=== PATIENT | female | born 1960 | race Two or more races ===

== ENCOUNTER 2019-01-19 11:02 | Emergency (ER) | payer MEDICARE ==
--- NOTE | 2019-01-19 11:39 | ER Document Report ---
ED Medical Screen (RME) - General Chief Complaint: Rectal Bleeding Stated Complaint: ANAL BLEEDING, ABDOMINAL PAIN Time Seen by Provider: 01/19/19 11:27 Mode of Arrival: Ambulatory Information source: Patient Notes: This [place]-speaking female presents the emergency department with 4 days of constipation and rectal bleeding. Reports history of cirrhosis. Also reports patient is anemic. Patient is visiting from [place]. Daughter is at her side interpreting. Daughter also reports patient has peripheral edema but that is not new. Also reports patient seems to be forgetting more. She reports the patient's primary provider told her that it is due to her cirrhosis. Nonalcoholic. I have greeted and performed a rapid initial assessment of this patient. A comprehensive ED assessment and evaluation of the patient, analysis of test results and completion of the medical decision making process will be conducted by additional ED providers. Dictation of this chart was performed using voice recognition software; therefore, there may be some unintended grammatical errors. TRAVEL OUTSIDE OF THE [place] IN LAST 30 DAYS: No - Related Data Allergies/Adverse Reactions: No Known Allergies Allergy (Verified 01/19/19 11:13) Past Medical History - Social History Chew tobacco use (# tins/day): No Frequency of alcohol use: None Drug Abuse: None Renal/ Medical History: Denies: Hx Peritoneal Dialysis Physical Exam - Vital signs Vitals: Temp Pulse Resp BP Pulse Ox 98.3 F 88 18 132/74 H 99 01/19/19 11:16 01/19/19 11:16 01/19/19 11:16 01/19/19 11:16 01/19/19 11:16 Course - Vital Signs Vital signs: Temp Pulse Resp BP Pulse Ox 98.3 F 88 18 132/74 H 99 01/19/19 11:16 01/19/19 11:16 01/19/19 11:16 01/19/19 11:16 01/19/19 11:16
[2019-01-19 12:05] LABS: ABSOLUTE EOSINOPHILS # (AUTO) 0.1 10^3/uL (0.0-0.6); ABSOLUTE LYMPHOCYTES (AUTO) 0.8 10^3/uL (0.5-4.7); ABSOLUTE MONOCYTES (AUTO) 0.3 10^3/uL (0.1-1.4); ABSOLUTE NEUT (AUTO) 2.4 10^3/uL (1.7-8.2); BASOPHILS % (AUTO) 0.3 % (0-2); EOSINOPHILS % (AUTO) 1.7 % (0-6); HEMATOCRIT 26.7 % (36.0-47.0); HEMOGLOBIN 8.9 g/dL (12.0-15.5); LYMPHOCYTES % (AUTO) 22.4 % (13-45); MEAN CORPUSCULAR HEMOGLOBIN 29.6 pg (27.0-33.4); MEAN CORPUSCULAR HGB CONC 33.1 g/dL (32.0-36.0); MEAN CORPUSCULAR VOLUME 89 fl (80-97); MONOCYTES % (AUTO) 8.3 % (3-13); RED BLOOD COUNT 2.99 10^6/uL (3.72-5.28); RED CELL DISTRIBUTION WIDTH 17.4 % (11.5-14.0); SEGMENTED NEUTROPHILS % (AUTO) 67.3 % (42-78); TOTAL CELLS COUNTED % (AUTO) 100 %; WHITE BLOOD COUNT 3.5 10^3/uL (4.0-10.5)
--- NOTE | 2019-01-19 12:18 | RADIOLOGY REPORT (SQ) ---
EXAM DESCRIPTION: KUB/ABDOMEN (SINGLE VIEW) COMPLETED DATE/TIME: 01/19/2019 11:59 am REASON FOR STUDY: constipation rectal bleed COMPARISON: None. NUMBER OF VIEWS: One view. TECHNIQUE: Supine radiographic image of the abdomen acquired. LIMITATIONS: None. FINDINGS: BOWEL GAS PATTERN: Normal bowel gas pattern. No dilated loops. CALCIFICATIONS: No suspicious calcifications. SOFT TISSUES: No gross mass or suggestion of organomegaly. HARDWARE: None in the abdomen. BONES: No acute fracture. No worrisome bone lesions. OTHER: No other significant finding. IMPRESSION: NO RADIOGRAPHIC EVIDENCE FOR ACUTE ABDOMINAL DISEASE. TECHNICAL DOCUMENTATION: JOB ID: [id number] [address]- All Rights Reserved Reading location - IP/workstation name: [email or web address]
[2019-01-19 12:24] LABS: ALANINE AMINOTRANSFERASE 33 U/L (9-52); ALBUMIN 2.1 g/dL (3.5-5.0); ALKALINE PHOSPHATASE 211 U/L (38-126); ANION GAP 6 (5-19); ASPARTATE AMINO TRANSFERASE 69 U/L (14-36); BILIRUBIN,DIRECT 0.5 mg/dL (0.0-0.4); BILIRUBIN,TOTAL 2.6 mg/dL (0.2-1.3); BLOOD UREA NITROGEN 7 mg/dL (7-20); CALCIUM 7.9 mg/dL (8.4-10.2); CARBON DIOXIDE 22 mmol/L (22-30); CHLORIDE 116 mmol/L (98-107); GLUCOSE 102 mg/dL (75-110); POTASSIUM 3.6 mmol/L (3.6-5.0); SODIUM 143.6 mmol/L (137-145); TOTAL PROTEIN 6.3 g/dL (6.3-8.2)
[2019-01-19 12:29] LABS: PLATELET COUNT 69 10^3/uL (150-450)
--- NOTE | 2019-01-19 14:49 | ER Document Report ---
ED General - General Chief Complaint: Rectal Bleeding Stated Complaint: ANAL BLEEDING, ABDOMINAL PAIN Time Seen by Provider: 01/19/19 11:27 Mode of Arrival: Ambulatory Notes: Patient is a 58-year-old female with history of cirrhosis and chronic anemia that presents to the emergency department for chief complaint of rectal bleeding. Patient history provided by both the patient and the patient's daughter. Over the last 5 days she has been having episodes of bright red blood per rectum. Mainly mixed with the stool, she is been constipated since Friday however, she is supposed to be on lactulose for her cirrhosis, and if she does not take it she gets rather constipated, her dose was recently decreased significantly, and she has been straining more in the bathroom. She does have a history of hemorrhoids. She denies any lightheadedness, dizziness, palpitations, chest pain, shortness of breath, difficulty breathing, nausea or vomiting, or any abdominal pain. She is visiting from out of town with family, will be going back home on Friday. Daughter also mentions she has been a little bit more confused recently since decreasing the dose of the lactulose, she will have intermittent episodes of fogginess, and then she will be more lucid and as well depends on the time of the day. Past Medical History: Cirrhosis, hemorrhoids, constipation Past Surgical History: Denies recent or pertinent surgical history Social History: [] Family History: Reviewed and noncontributory for presenting illness Allergies: Reviewed, see documented allergy list. REVIEW OF SYSTEMS: Other than noted above, the 12 point review of systems was reviewed with the patient and were negative, all pertinent findings are included in the HPI. PHYSICAL EXAMINATION: Vital signs reviewed, nursing noted reviewed. GENERAL: Well-appearing, well-nourished and in no acute distress. HEAD: Atraumatic, normocephalic. EYES: Eyes appear normal, extraocular movements intact, mild scleral icterus, conjunctiva are normal. ENT: nares patent, oropharynx clear without exudates. Moist mucous membranes. NECK: Normal range of motion, supple without lymphadenopathy LUNGS: Breath sounds clear to auscultation bilaterally and equal. No wheezes rales or rhonchi. HEART: Regular rate and rhythm without murmurs ABDOMEN: Soft, obese, mild distention, nontender, normoactive bowel sounds. No rebound, guarding, or rigidity. No masses appreciated. No fluid wave External rectal exam: Patient noted to have hemorrhoids bilaterally, no active bleeding at this time, nonthrombosed. EXTREMITIES: Nontender, good range of motion, trace bilateral lower extremity edema NEUROLOGICAL: No focal neurological deficits. Moves all extremities spontaneously Motor and sensory grossly intact on exam. PSYCH: Normal mood, normal affect. SKIN: Warm, Dry, normal turgor, mild jaundice noted TRAVEL OUTSIDE OF THE [place] IN LAST 30 DAYS: No - Related Data Allergies/Adverse Reactions: No Known Allergies Allergy (Verified 01/19/19 11:13) Past Medical History - General Information source: Patient - Social History Smoking Status: Never Smoker Chew tobacco use (# tins/day): No Frequency of alcohol use: None Drug Abuse: None Family History: Reviewed & Not Pertinent Patient has suicidal ideation: No Patient has homicidal ideation: No Renal/ Medical History: Denies: Hx Peritoneal Dialysis Physical Exam - Vital signs Vitals: Temp Pulse Resp BP Pulse Ox 98.3 F 88 18 132/74 H 99 01/19/19 11:16 01/19/19 11:16 01/19/19 11:16 01/19/19 11:16 01/19/19 11:16 Course - Re-evaluation Re-evalutation: Patient seen and examined vital signs reviewed. Laboratory data and/or imaging were ordered as appropriate for the patient's presenting symptoms and complaint, with consideration of any critical or life threatening conditions that may be associated with their obtained history and exam as noted above. Results were reviewed when available and demonstrated pancytopenia, hemoglobin is 8.9, according to the family this seems to be around her baseline, she has been lower in the past as well. She apparently used to get iron transfusions but does not anymore. Patient's liver function tests including bilirubin are consistent with her cirrhosis, and apparently are around her baseline. The patient was re-evaluated and was hemodynamically stable Evaluation was most consistent with rectal bleeding, mild hepatic encephalopathy, will increase the patient's lactulose dosing, and prescribe her rifaximin as well, I did advised to follow-up with her primary care and get back to [place], unless she has lightheadedness, or the bleeding continues and worsens they should return to the emergency department sooner. Results were discussed with the patient at this point, after careful consideration I feel that that patient can be discharged from the emergency department, the patient was educated treatments and reasons to return to the emergency department based on their presumed diagnosis as noted above, they were advised to followup with a primary care physician in 2-3 days. Patient was agreeable to plan of care. *Note is created using voice recognition software and may contain spelling, syntax or grammatical errors. Laboratory 01/19/19 01/19/19 11:43 11:43 WBC 3.5 L RBC 2.99 L Hgb 8.9 L Hct 26.7 L MCV 89 MCH 29.6 MCHC 33.1 RDW 17.4 H Plt Count 69 L Seg Neutrophils % 67.3 Lymphocytes % 22.4 Monocytes % 8.3 Eosinophils % 1.7 Basophils % 0.3 Absolute Neutrophils 2.4 Absolute Lymphocytes 0.8 Absolute Monocytes 0.3 Absolute Eosinophils 0.1 Absolute Basophils 0.0 Sodium 143.6 Potassium 3.6 Chloride 116 H Carbon Dioxide 22 Anion Gap 6 BUN 7 Creatinine 0.53 Est GFR ( Amer) > 60 Est GFR (Non-Af Amer) > 60 Glucose 102 Calcium 7.9 L Total Bilirubin 2.6 H Direct Bilirubin 0.5 H Neonat Total Bilirubin Not Reportable Neonat Direct Bilirubin Not Reportable Neonat Indirect Bili Not Reportable AST 69 H ALT 33 Alkaline Phosphatase 211 H Total Protein 6.3 Albumin 2.1 L KUB X-Ray 01/19/19 11:38 IMPRESSION: NO RADIOGRAPHIC EVIDENCE FOR ACUTE ABDOMINAL DISEASE. - Vital Signs Vital signs: Temp Pulse Resp BP Pulse Ox 98.3 F 88 18 132/74 H 99 01/19/19 11:16 01/19/19 11:16 01/19/19 11:16 01/19/19 11:16 01/19/19 11:16 - Laboratory Result Diagrams: 01/19/19 11:43 01/19/19 11:43 Laboratory results interpreted by me: 01/19/19 01/19/19 11:43 11:43 WBC 3.5 L RBC 2.99 L Hgb 8.9 L Hct 26.7 L RDW 17.4 H Plt Count 69 L Chloride 116 H Calcium 7.9 L Total Bilirubin 2.6 H Direct Bilirubin 0.5 H AST 69 H Alkaline Phosphatase 211 H Albumin 2.1 L Discharge - Discharge Clinical Impression: Rectal bleeding, Hepatic encephalopathy, Pancytopenia Condition: Stable Disposition: HOME, SELF-CARE Instructions: Hemorrhoids ([facility]) Additional Instructions: Please monitor for worsening bleeding, or if she develops lightheadedness, plea se take the newly prescribed dosing of the lactulose and the additional medication to help with her mentation associated with her cirrhosis. Please follow-up with her physician as soon as you get back to [place]. I also recommend that you purchase some compression stockings at the pharmacy, that go up to the knee to help with leg swelling. Prescriptions: Lactulose 10 gm PO BID #500 ml Rifaximin [Xifaxan 550 mg Tablet] 550 mg PO BID #60 tablet
[2019-01-19 15:02] VITALS: BP 133/89
[2019-01-19 15:19] LABS: INTERNATIONAL RATION (INR) 2.07; PROTHROMBIN TIME 24.3 SEC (11.4-15.4)
== END 2019-01-19 15:02 | disposition home or self-care (01) ==
LOC: ER 11:02
DX: K62.5 Hemorrhage of anus and rectum (principal); D61.818 Other pancytopenia; K72.90 Hepatic failure, unspecified without coma; R10.9 Unspecified abdominal pain; D64.9 Anemia, unspecified; K59.00 Constipation, unspecified
CPT/HCPCS: 36415; 74018; 80053; 85025; 85610; 99283

== ENCOUNTER 2019-06-06 14:14 | Emergency (ER) | payer MEDICARE ==
--- NOTE | 2019-06-06 15:17 | ER Document Report ---
ED Medical Screen (RME) - General Chief Complaint: Cough Stated Complaint: COUGH Time Seen by Provider: 06/06/19 15:12 Mode of Arrival: Ambulatory Information source: Patient Notes: 59-year-old female presents to ED for a cough for the last 4 days. She states she is not coughing anything up. She states she coughs so hard sometimes it feels like she needs to throw up. She states she does have a history of asthma high blood pressure and cirrhosis. She states that cirrhosis is from taking diet medications. Patient is alert oriented respirations regular and unlabored at this time. I have greeted and performed a rapid initial assessment of this patient. A comprehensive ED assessment and evaluation of the patient, analysis of test results and completion of medical decision making process will be conducted by an additional ED providers. TRAVEL OUTSIDE OF THE [place] IN LAST 30 DAYS: No - Related Data Allergies/Adverse Reactions: No Known Allergies Allergy (Verified 01/19/19 11:13) Past Medical History Renal/ Medical History: Denies: Hx Peritoneal Dialysis Physical Exam - Vital signs Vitals: Temp Pulse Resp BP Pulse Ox 99.2 F 103 H 24 H 148/87 H 100 06/06/19 14:18 06/06/19 14:18 06/06/19 14:18 06/06/19 14:18 06/06/19 14:18 Course - Vital Signs Vital signs: Temp Pulse Resp BP Pulse Ox 99.2 F 103 H 24 H 148/87 H 100 06/06/19 14:18 06/06/19 14:18 06/06/19 14:18 06/06/19 14:18 06/06/19 14:18
--- NOTE | 2019-06-06 15:37 | RADIOLOGY REPORT (SQ) ---
EXAM DESCRIPTION: CHEST 2 VIEWS COMPLETED DATE/TIME: 06/06/2019 3:28 pm REASON FOR STUDY: cough COMPARISON: None. EXAM PARAMETERS: NUMBER OF VIEWS: two views TECHNIQUE: Digital Frontal and Lateral radiographic views of the chest acquired. RADIATION DOSE: NA LIMITATIONS: none FINDINGS: LUNGS AND PLEURA: Mild interstitial prominence. No lobar infiltrate, masses or pneumothor ax. No pleural effusion. MEDIASTINUM AND HILAR STRUCTURES: No masses or contour abnormalities. HEART AND VASCULAR STRUCTURES: Heart normal size. No evidence for failure. BONES: No acute findings. HARDWARE: None in the chest. OTHER: No other significant finding. IMPRESSION: PROBABLE CHRONIC INTERSTITIAL CHANGES. NO ACUTE RADIOGRAPHIC FINDING IN THE CHEST. TECHNICAL DOCUMENTATION: JOB ID: [id number]- All Rights Reserved Reading location - IP/workstation name: [email or web address]
--- NOTE | 2019-06-06 15:51 | ER Document Report ---
HPI - HPI Patient complains to provider of: cough Time Seen by Provider: 06/06/19 15:12 Onset: Other Onset/Duration: Persistent Severity: Mild Pain Level: 2 Context: This 59-year-old female with history of asthma high blood pressure and cirrhosis presents today with complaints of cough for the past 4 days. Denies product. Denies fever reports she feels like she could vomit after she coughs at times. Reports she has just moved here from [place] and plans on living here with her sister. Respiratory rate even unlabored no rhonchi no wheeze. Reports she just received her flu vaccine last week. Associated Symptoms: None Exacerbated by: Denies Relieved by: Denies Similar symptoms previously: Yes Recently seen / treated by doctor: No - REPRODUCTIVE Reproductive: DENIES: : Past Medical History - General Information source: Patient - Social History Smoking Status: Unknown if Ever Smoked Cigarette use (# per day): No Frequency of alcohol use: None Drug Abuse: None Lives with: Family Family History: Reviewed & Not Pertinent Patient has suicidal ideation: No Patient has homicidal ideation: No - Past Medical History Cardiac Medical History: Reports: Hx Hypertension Pulmonary Medical History: Reports: Hx Asthma Renal/ Medical History: Denies: Hx Peritoneal Dialysis GI Medical History: Reports: Hx Cirrhosis Surgical Hx: Negative - Immunizations History of Influenza Vaccine for 05/2019 - 10/2019 Season: Yes Vertical Provider Document - INFECTION CONTROL TRAVEL OUTSIDE OF THE [place] IN LAST 30 DAYS: No Course - Re-evaluation Re-evalutation: 06/06/19 15:50 Chest X-Ray 06/06/19 15:17 IMPRESSION: PROBABLE CHRONIC INTERSTITIAL CHANGES. NO ACUTE RADIOGRAPHIC FINDING IN THE CHEST. 06/06/19 16:02 59-year-old female with history of asthma reports that she has been having a nonproductive cough for the past 4 days. No fever vomiting or diarrhea although she reports she feels like she can vomit sometimes after coughing. Chest x-ray is negative. Respiratory rate is even off and unlabored no wheeze no rhonchi noted. She was instructed on Tessalon periods. She was also instructed on the importance of follow-up with primary care provider she plans on living here. She verbalized understanding to all instructions. Dictation of this chart was performed using voice recognition software; therefore, there may be some unintended grammatical errors. - Vital Signs Vital signs: Temp Pulse Resp BP Pulse Ox 99.2 F 103 H 24 H 148/87 H 100 06/06/19 14:18 06/06/19 14:18 06/06/19 14:18 06/06/19 14:18 06/06/19 14:18 - Diagnostic Test Radiology reviewed: Image reviewed, Reports reviewed Discharge - Discharge Clinical Impression: Cough Condition: Stable Disposition: HOME, SELF-CARE Instructions: Family Physicians / Practices, Supriya Dawn ([facility]) Additional Instructions: *You have been evaluated for a cough today *Your chest x-ray is negative for pneumonia *Increase fluid intake *Take medication as prescribed for cough *Monitor your temperature, take Tylenol as indicated *Follow up with a primary care provider within 1 week *Return to ED for worsening condition, changes, needs, difficulty breathing worsening cough concerns Monitor your blood pressure. Your blood pressure was elevated today. This may be because you were anxious, in pain or because you need medication. It is important to follow up with your primary care provider for full evaluation. Prescriptions: Benzonatate [Supriya Perljacob 100 mg Capsule] 100 mg PO ASDIR PRN #20 capsule PRN Reason: Forms: Elevated Blood Pressure
[2019-06-06] MEDS ORDERED: BENZONATATE 100 MG CAPSULE PO ONE (15:56)
[2019-06-06 16:06] VITALS: BP 135/89
== END 2019-06-06 16:13 | disposition home or self-care (01) ==
LOC: ER 14:14
DX: R05 Cough (principal); I10 Essential (primary) hypertension
CPT/HCPCS: 71046; A9270; 99283